=== PATIENT | male | born 1940 | race Caucasian/White ===

== ENCOUNTER 2020-04-10 07:54 | Emergency (ER) | payer MEDICARE ==
[~2020-04-10] VITALS: Ht 182.9 cm; Wt 71.0 kg
[2020-04-10 08:04] VITALS: BP 131/70
--- NOTE | 2020-04-10 08:12 | NUR ---
PT HAS CO BLEEDING FROM RECTUM. PT STATES HE HAD RECENT HERNIA REPAIR. PT DENIES DIZZINESS, SOB, CP OR COUGH. VSS.RESP EVEN AND UNLABORED. STEADY GAIT.
[2020-04-10 08:21] LABS: BASOPHILS # (AUTO) 0.03 x10^3/uL (0-0.1); BASOPHILS % (AUTO) 1 % (0-1); EOSINOPHILS % (AUTO) 0 % (1-7); LYMPHOCYTES # (AUTO) 1.16 x10^3/uL (1-3.4); LYMPHOCYTES % (AUTO) 19 % (22-44); MD NO; MEAN CORPUSCULAR HEMOGLOBIN 31.4 pg (27.5-34.5); MEAN CORPUSCULAR HGB CONC 32.9 g/dL (33.2-36.2); MEAN PLATELET VOLUME 6.8 fL (7.4-10.4); MONOCYTES # (AUTO) 0.46 x10^3/uL (0.2-0.8); MONOCYTES % (AUTO) 7 % (2-9); NEUTROPHILS # (AUTO) 4.56 x10^3/uL (1.8-6.8); NEUTROPHILS % (AUTO) 73 % (42-75); PLATELET COUNT 191 x10^3/uL (130-400); RED BLOOD COUNT 4.22 x10^6/uL (4.38-5.82); RED CELL DISTRIBUTION WIDTH 14.7 % (9.4-14.8)
[2020-04-10] MEDS ORDERED: FURO40TA6 PO (08:26)
[2020-04-10] MEDS ORDERED: CARV3.1212 PO (08:26)
[2020-04-10 08:31] LABS: INTERNATIONAL NORMALIZED RATIO 1.17 (0.93-1.1); PROTHROMBIN TIME 12.4 Seconds (9.6-11.5)
[2020-04-10 08:33] LABS: ALANINE AMINOTRANSFERASE 29 U/L (12-78); ALBUMIN 3.5 g/dL (3.4-5.0); ANION GAP 5 mmol/L (5-15); CALCIUM 9.1 mg/dL (8.5-10.1); CHLORIDE 98 mmol/L (98-107); CREATININE 1.26 mg/dL (0.7-1.3)
[2020-04-10 08:35] LABS: ALKALINE PHOSPHATASE 78 U/L (45-117); BILIRUBIN,TOTAL 0.7 mg/dL (0.2-1.0); TOTAL PROTEIN 7.5 g/dL (6.4-8.2)
--- NOTE | 2020-04-10 09:30 | NUR ---
pt ambulated to bathroom w steady gait to bathroom
== END 2020-04-10 10:39 | disposition home or self-care (01) ==
LOC: ED 09:04
DX: R19.7 Diarrhea, unspecified (principal); I11.9 Hypertensive heart disease without heart failure; Z87.891 Personal history of nicotine dependence
CPT/HCPCS: 36415; 80053; 85025; 85610; 85730; 99283

== ENCOUNTER → 2020-05-01 | Outpatient (CLI) | payer MEDICARE ==
[~2020-05-01] MED LIST: CARV3.1212 PO; FURO40TA6 PO
== END | disposition home or self-care (01) ==
LOC: CFH 09:42
PROVIDERS: ATTEND Nurse Practitioner
DX: R60.0 Localized edema (principal)